=== PATIENT | male | born 1940 | race Hispanic/Latino ===

== ENCOUNTER 2023-06-01 05:13 | Observation (INO) | payer OTHER ==
[2023-05-27 12:23] LABS: BASOPHILS # (AUTO) 0.03 K/uL (0.00-0.20); BASOPHILS % (AUTO) 0.4 % (0.0-5.0); EOSINOPHILS # (AUTO) 0.11 K/uL (0.00-0.70); EOSINOPHILS % (AUTO) 1.6 % (0.0-8.0); HEMATOCRIT 51.1 % (42-54); IMMATURE GRANULOCYTE ABSOLUTE 0.04 K/uL (0-1); LYMPHOCYTES % (AUTO) 29.2 % (21.0-51.0); MEAN CORPUSCULAR HEMOGLOBIN 29.3 pg (27.0-33.0); MEAN CORPUSCULAR HGB CONC 33.3 g/dL (32.0-36.0); MEAN CORPUSCULAR VOLUME 88.1 fL (79-99); MONOCYTES # (AUTO) 0.6 K/uL (0.1-1.0); MONOCYTES % (AUTO) 9.2 % (3.0-13.0); NEUTROPHILS # (AUTO) 4.1 K/uL (1.8-7.7); PLATELET COUNT (AUTO) 187 K/uL (130-400); RED CELL DISTRIBUTION WIDTH 14.7 % (11.0-15.5); WHITE BLOOD COUNT (AUTO) 6.9 K/uL (4.8-10.8)
[2023-05-27 12:35] LABS: INR 0.94 (0.85-1.15); PROTHROMBIN TIME 10.9 SEC (9.6-11.6)
[2023-05-27 12:51] LABS: ALBUMIN 3.7 g/dL (3.5-5.0); BILIRUBIN,TOTAL 0.7 mg/dL (0.2-1.0); POTASSIUM 4.5 mmol/L (3.5-5.1)
[2023-05-27 13:11] VITALS: BP 155/87; PULSE 70; RESP 18
[~2023-06-01] VITALS: Ht 180.3 cm; Wt 103.1 kg
[2023-06-01] VITALS (28 sets, daily range): BP systolic 100–170; BP diastolic 51–92; PULSE 71–86; RESP 14–18; O2SAT 96–98
[~2023-06-01 05:13] MED LIST: LISI10TA24 PO
[2023-06-01] MEDS ORDERED: PROPOFOL 1000 MG/100 ML 100 ML IV ONE ×2 (07:05→08:35)
[2023-06-01] MEDS ORDERED: KETAMINE 50MG/ML SYRINGE 50 MG/ML DISP.SYRIN ONE ×2 (07:05→08:34)
[2023-06-01] MEDS ORDERED: MIDAZOLAM HCL 1 MG/ML 2ML VIAL ONE (07:09)
[2023-06-01] MEDS: LACTATED RINGERS 1000ML 1,000 ML IV ONE (07:10)
[2023-06-01] MEDS: CEFAZOLIN SODIUM 2 GM VIAL ONE ×2 (07:10→22:11)
[2023-06-01] MEDS: TRANEXAMIC ACID 1000MG/10ML ONE (07:35)
[2023-06-01] MEDS ORDERED: PHENYLEPHRINE HCL 10 MG/ML 1ML VIAL IV ONE (08:02)
[2023-06-01] MEDS: 0.9%NACL 48.45 ML, ROPIVACAINE 0.5% 49.25ML, EPINEPH 0.5MG KETOROLAC 30MG,CLONIDINE 80MCG IV PRN (08:08)
[2023-06-01] MEDS: GENTAMICIN SULFATE 80 MG/2 ML VIAL ONE (08:08)
[2023-06-01] MEDS: CEFAZOLIN SODIUM 1 GM VIAL ONE (08:08)
[2023-06-01] MEDS ORDERED: ONDANSETRON 4MG INJ ONE (09:35)
[2023-06-01] MEDS ORDERED: GLYCOPYRROLATE 0.2 MG/ML 5 ML VIAL ONE (09:50)
[2023-06-01] MEDS ORDERED: MAG/ALUM/SIMETH 30 ML UDCUP PO PRN (12:00)
[2023-06-01] MEDS ORDERED: ACETAMINOPHEN 325 MG TAB PO PRN (12:00)
[2023-06-01] MEDS ORDERED: BENZOCAINE/MENTH/CETYLPYRD CL 1 EACH LOZENGE MM PRN (12:00)
[2023-06-01] MEDS ORDERED: DiphenhydrAMINE HCL 50 MG/ML VIAL IM PRN (12:00)
[2023-06-01] MEDS ORDERED: LACTULOSE 20 GM/30 ML UDCUP PO PRN (12:00)
[2023-06-01] MEDS ORDERED: DIPHENOXYLATE HCL/ATROPINE 2.5/0.025 MG TAB PO PRN (12:00)
[2023-06-01] MEDS ORDERED: DIPHENHYDRAMINE HCL 25 MG CAPSULE PO PRN (12:00)
[2023-06-01] MEDS ORDERED: ACETAMINOPHEN 325 MG TAB PO SCH (12:00)
[2023-06-01] MEDS: 0.9%NACL 1000ML 1,000 ML IV SCH (12:16)
[2023-06-01] MEDS: HYDROMORPH /0.9% NACL/PF PCA 50 ML IV PRN (12:17)
[2023-06-01] MEDS ORDERED: COMPOUND IV REFRIGERATED 1 EACH IVSOLN MISC PRN (12:30)
[2023-06-01] MEDS: CEFAZOLIN SODIUM 3 GM in DEXTROSE 5%-WATER 100 ML IVPB SCH (15:19)
[2023-06-01] MEDS ORDERED: CEFAZOLIN SODIUM 2 GM VIAL IVPB SCH (15:30)
[2023-06-01] MEDS: LISINOPRIL 10 MG TABLET PO SCH (21:00)
[2023-06-02 04:30] VITALS: BP 139/77; PULSE 112; RESP 18
[2023-06-02 04:47] LABS: HEMATOCRIT 40.9 % (42-54); MEAN CORPUSCULAR HEMOGLOBIN 29.5 pg (27.0-33.0); MEAN CORPUSCULAR HGB CONC 33.7 g/dL (32.0-36.0); MEAN CORPUSCULAR VOLUME 87.4 fL (79-99); RED BLOOD CELL COUNT(AUTO) 4.68 MIL/uL (4.50-6.20); RED CELL DISTRIBUTION WIDTH 14.7 % (11.0-15.5); WHITE BLOOD COUNT (AUTO) 6.4 K/uL (4.8-10.8)
[2023-06-02 04:56] LABS: CREATININE 1.2 mg/dL (0.5-1.5); POTASSIUM 4.3 mmol/L (3.5-5.1)
[2023-06-02 05:00] LABS: INR 0.94 (0.85-1.15); PROTHROMBIN TIME 10.9 SEC (9.6-11.6)
[2023-06-02] MEDS: ONDANSETRON 4MG INJ IVP PRN (07:41)
[2023-06-02] MEDS: ACETAMINOPHEN WITH CODEINE 1 TAB TAB PO PRN (07:44)
[2023-06-02 08:00] VITALS: O2SAT 93
[2023-06-02] MEDS ORDERED: ACETAMINOPHEN 325 MG TAB PO PRN (08:00)
[2023-06-02 08:10] VITALS: BP 110/57; PULSE 135; RESP 16
[2023-06-02] MEDS: RIVAROXABAN 10 MG TABLET PO SCH (08:35)
[2023-06-02 11:25] VITALS: BP 108/54; PULSE 99; RESP 17
== END 2023-06-02 16:00 | disposition home or self-care (01) ==
LOC: DAH 05:13 → DAHIP 05:14 → DAH 05:14 → 4DH 11:12
PROVIDERS: ADMIT Orthopaedic Surgery; ATTEND Orthopaedic Surgery
DX: M17.12 Unilateral primary osteoarthritis, left knee (principal); I10 Essential (primary) hypertension; I25.10 Atherosclerotic heart disease of native coronary artery without angina pectoris; E66.01 Morbid (severe) obesity due to excess calories; G89.29 Other chronic pain; Z68.31 Body mass index [BMI] 31.0-31.9, adult; Z79.899 Other long term (current) drug therapy; Z86.2 Personal history of diseases of the blood and blood-forming organs and certain disorders involving the immune mechanism
CPT/HCPCS: 80053; 85025; 85610 ×2; 85730; 36415 ×2; 71046; 87641; 27447; 96365; 96366 ×3; 96368; 97161; 97012; 97116 ×3; 97530 ×5; 93005; 96375; 80048; 85027; A6260; G0378 ×28; G0379; A4510; A4663; J7120 ×2; A4215 ×2; A4649 ×4; J0690 ×4; J3490 ×4; J1580; J2250; J2704 ×2; J7060; J2405 ×2; J2371; A6223; C1763 ×2; C1776; A5120; A4223; A4222; A4221; A6450; J7030